=== PATIENT | female | born 1955 | race Caucasian/White ===

== ENCOUNTER 2021-05-08 02:33 | Outpatient (CLI) | payer BC, SELFPAY ==
--- NOTE | 2021-05-08 06:45 | DI.US_ITS ---
Exam(s) US NEEDLE LOCAL OTHER WO RAD EXAM: US NEEDLE LOCAL OTHER WO RAD CLINICAL HISTORY: left TR 4 lesion,lt thyroid nodule, ultrasound guided bx. COMPARISON: No exams were available for comparison TECHNIQUE: Ultrasound guidance was provided for ultrasound-guided FNA performed of a solid nodule in the thyroid lobe. Actual procedure was performed by Dr. Fenton FINDINGS: This solid nodule (2 points) measures 2 x 1.5 x 1.3 cm and is mildly hypoechoic compared to the surro unding parenchyma (2 points). In the transverse plane it is wider than taller (adding 3 points). Ma rgins are smooth (0 points) and the nodule does appear to contain calcifications macro (1 point) Total points for this nodule =8 Therefore TR 5= highly suspicious Submitted images reveal needle to be in the center this solid nodule. IMPRESSION: Successful Ultrasound-guided FNA OF LEFT THYROID LOBE SOLID NODULE DATA REPOSITORY:
--- NOTE | 2021-05-08 10:30 | PAPNONF_PTH ---
PATIENT: Mana Nava LOC: [facility] U#:[id number] AGE/SX: 66/F ROOM: RE05/08/[address]: Ángel Fenton MD : [id number] BED: DIS: 05/08/2021 SPEC #: [id number] RECD: 05/08/21 13:16 STATUS: IMANI REQ #: [id number] AYLEEN: 05/08/21 10:[address]: Ángel Fenton DEPT: [facility] Cytology RECD BY: Jessy Barnett ENTERED: 05/08/21 13:17 SP TYPE: PANCHO STOREY DR: Shadia Isaac Tissues: 1 - BODY FLUID CYTO-FINE NEEDLE [facility] Procedures: BODY FLUID CYTO-FINE NEEDLE [facility] Comments: [id number]
--- NOTE | 2021-05-08 10:59 | W.PROCNOTE ---
Procedure Note Date of procedure: 05/08/21 Procedure: Ultrasound-guided FNA, left thyroid nodule Surgeon/Proceduralist/Physician: Ángel Fenton Procedure Diagnosis: Left thyroid nodule, TR 4 Procedure Indications: Patient has a left-sided TR 4 1.5 cm thyroid nodule. Options were explained to the patient regarding further management. She elected to undergo the above procedure. Consent was obtained prior to procedure Procedure Description: The patient was positioned in a supine position with her neck extended. Ultrasound was used to localize the right thyroid nodule on the left. The patient was prepped and draped in appropriate fashion and 1% lidocaine with 1/100,000 epinephrine was injected into the skin and subcutaneous tissues overlying the nodule. A 25-gauge needle was carefully introduced into the thyroid nodule, and a total of 4 passes were made, 2 for specimen, and 2 for potential Afirma. Cellular adequacy was verified by Dr. Orozco. The patient tolerated the procedure well. There was no significant bleeding. Sterile dressing was applied and the patient was allowed to first sit, and then stand and then ambulate. Her vital signs remained stable. I will call the patient with the results of pathology within 1 week. She will call me if she does not hear from me within 1 week. She will call with any signs of infection. She may use ibuprofen or Tylenol for discomfort. She had no further questions. She is comfortable with the plan.
== END 2021-05-08 02:53 ==
PROVIDERS: PCP Internal Medicine; Visit Provider Otolaryngology
DX: E04.1 Nontoxic single thyroid nodule (principal); D44.0 Neoplasm of uncertain behavior of thyroid gland
CPT/HCPCS: 10005; 76942; 88104

== ENCOUNTER → 2023-06-04 01:47 | Outpatient (CLI) | payer MEDICARE, BC, SELFPAY ==
--- NOTE | 2023-06-04 08:00 | DI.US_ITS ---
Exam(s) US THYROID EXAM: US THYROID CLINICAL HISTORY: Assess for change,lt thyroid nodule,e04.1. TECHNIQUE: Ultrasound thyroid performed using standard protocol. COMPARISON: US US THYROID from 06/04/2022 FINDINGS: ISTHMUS: 1.7 mm RIGHT LOBE: Size: 5 x 1.3 x 1.8 cm Echogenicity: Normal. Vascularity: Normal. Nodules: There is a solid 1.7 x 0.4 x 0.7 cm hypoechoic nodule in the mid pole of the right lobe of t he thyroid gland. It is consistent with a TI rads 4 level nodule. Due to its size, FNA is recommend ed. LEFT LOBE: Size: 4.2 x 1.9 x 2.1 cm Echogenicity: Normal. Vascularity: Normal. Nodules: There is again seen and a dominant solid nodule in the left lobe measuring 2 x 1.6 x 1.6 cm. There are macrocalcifications and peripheral calcifications present. It is consistent with a TI ra ds 5 nodule. OTHER FINDINGS: There are no other nodule seen in either lobe of the thyroid gland requiring follow-u p or biopsy. There is a 0.6 by 0.3 x 0.4 cm isoechoic nodule which appears to be extrathyroidal and may represent a parathyroid. IMPRESSION: 1. TI rads level 4 nodule in the right lobe. Due to its size, FNA is recommended. 2. Dominant nodule in the left lobe is again seen. DATA REPOSITORY:
== END ==
PROVIDERS: PCP Internal Medicine; Visit Provider Otolaryngology
DX: E04.2 Nontoxic multinodular goiter (principal)
CPT/HCPCS: 76536

== ENCOUNTER 2024-06-03 01:36 | Outpatient (CLI) | payer MEDICARE, BC, SELFPAY ==
--- NOTE | 2024-06-03 07:15 | DI.US_ITS ---
Exam(s) US THYROID EXAM: US THYROID CLINICAL HISTORY: Assess for change,MULTINODULAR THYROID, GOITER,E04.2. TECHNIQUE: Ultrasound thyroid performed using standard protocol. COMPARISON: US US THYROID from May 2022 and May 2023 and 05/08/2021 FNA biopsy images. FINDINGS: Dominant left thyroid lobe nodule has undergone prior ultrasound-guided FNA in April 2021 LEFT THYROID LOBE: Measures 1.8 cm AP x 1.7 cm wide x 5.0 cm craniocaudal The dominant nodule in the left lobe which has undergone prior ultrasound-guided FNA presently measur es 2.0 x 1.6 x 1.6 cm Grading of this nodule is as follows: Composition: Solid-2 points Echogenicity: Isoechoic-1 point Shape: Wider than taller-0 points Margin: Smooth- 0 points Echogenic Foci: Contains both peripheral and a macro calcification-3 points Total Points for this nodule: 6 ACR Ti-Rads Category: TR4 This TR 4 level nodule qualifies for ultrasound-guided biopsy as it measures greater than 1.5 cm. It does not appear to have appreciably increased in size when compared to prior ultrasound examinations dating back to 2020. There is a 2nd nodule lower down in the left lobe again noted which measures 0.8 x 0.7 x 0.7 cm, unch anged from previous measurement. Grading of this nodule is as follows: Composition: Mixed cystic-solid- 1 point Echogenicity: Isoechoic-1 point Shape: Wider than taller- 0 points Margin: Smooth-0 points Echogenic Foci: Contains punctate echogenic foci-3 points Total points for this nodule: 5 ACR Ti-Rads Category: TR4 This nodule can be followed conservatively as it measures less than 1.5 cm. ISTHMUS: Normal thickness. There are no nodules in the isthmus. RIGHT THYROID LOBE: Measures 1.8 cm AP x 1.6 wide x 5.2 cm craniocaudal The right lobe again contains multiple nodules. The most superior of these nodules is a small 0.4 x 0.3 x 0.4 cm solid nodule with characteristics as follows: Composition: Solid-2 points Echogenicity: Hypoechoic-2 points Shape: Wider than taller in the transverse plane-0 points Margin: Smooth-0 points Echogenic Foci: None-0 points Total points for this nodule: 4 ACR Ti-Rads Category: 4 This nodule can be followed conservatively as it measures less than 1.5 cm. There is another nodule located inferiorly in the right lobe which measures 0.6 x 0.4 x 0.3 cm and wi th characteristics as follows: Composition: Solid-2 points Echogenicity: Hypoechoic-2 points Shape: Wider than taller in the transverse plane-0 points Margin: Smooth-0 points Echogenic Foci: None-0 points Total Points for this nodule: 4 ACR Ti-Rads Category: 4 This TR 4 level nodule can be followed conservatively as it measures less than 1.5 cm. There is a subtle 3rd nodule in the posterior-medial aspect of the right lobe which measures 2.1 x 0. 4 x 0.7 cm. It is characterized as follows: Composition: Solid-2 points Echogenicity: Hypoechoic compared to surrounding tissue-2 points Shape: Wider than taller-0 points Margin: Smooth-0 points Echogenic Foci: None-0 points Total points for this nodule: 4 ACR Ti-Rads Category: 4 This subtle TR 4 level nodule qualifies for ultrasound-guided FNA as it measures greater than 1.5 cm LYMPH NODES: There is no significant adenopathy. IMPRESSION: 1. There are multiple bilateral thyroid nodules again noted as described individually above. 2. Two of these nodules qualify for ultrasound-guided FNA byTiRads criteria. One of these is the dom inant solid 2 x 1.6 x 1.6 cm nodule in the left thyroid lobe. However, I note that this nodule under went prior ultrasound guided FNA in this department in April 2021 and does not appear to have appr eciably increased in size since that time. Please refer to pathology report if it is inconclusive th en consider repeat ultrasound-guided FNA. 3. The other TR 4 level nodule which qualifies for FNA is in the posterior-medial medial aspect of th e right thyroid lobe. This TR 4 level nodule measures 2.1 x 0.4 x 0.7 cm therefore qualifies for FNA . This is a subtle finding There is no significant adenopathy on either side of the neck. DATA REPOSITORY:
== END 2024-06-03 01:56 ==
LOC: DI 01:36
PROVIDERS: PCP Internal Medicine; Visit Provider Otolaryngology
DX: E04.2 Nontoxic multinodular goiter (principal)
CPT/HCPCS: 76536